=== PATIENT | male | born 1995 | race African-American/Black ===

== ENCOUNTER 2020-05-26 06:34 | Emergency (ER) | payer OTHER ==
[~2020-05-26] VITALS: Ht 180.3 cm; Wt 105.7 kg
[2020-05-26] MEDS ORDERED: UNISOM25 MG PO (06:45)
[2020-05-26] MEDS ORDERED: TRAZODONE HCL50 MG PO (06:45)
[2020-05-26 07:01] LABS: ABSOLUTE NEUTROPHILS 4.6 thou/uL (1.4-8.2); BASOPHILS 0.2 % (0.0-2.0); EOSINOPHILS 0.8 % (0.0-3.0); HEMATOCRIT 43.6 % (42.0-52.0); HEMOGLOBIN 15.3 gm/dL (14.0-18.0); LYMPHOCYTES 9.5 % (24.0-44.0); MCH 32.4 pg (26.0-34.0); MCV 92.5 fL (80.0-100.0); MONOCYTES 10.4 % (1.0-8.0); PLATELET COUNT 207 thou/uL (150-400); POLYS 79.1 % (36.0-66.0); RBC 4.72 mil/uL (4.50-6.00); RDW 14.7 % (10.5-14.5); WBC 5.8 thou/uL (4.0-11.0)
[2020-05-26 07:28] LABS: ANION GAP 12 mmol/L (7-16); BUN 9 mg/dL (7-18); CALCIUM 9.5 mg/dL (8.5-10.1); CHLORIDE 95 mmol/L (98-107); CO2 26 mmol/L (21-32); CREATININE 1.2 mg/dL (0.7-1.3); GLUCOSE 118 mg/dL (74-106); POTASSIUM 3.6 mmol/L (3.5-5.1); SODIUM 133 mmol/L (136-145)
[2020-05-26 07:38] LABS: LIPASE 2130 U/L (73-393); SGOT 120 U/L (15-37); SGPT 152 U/L (16-63); TOTAL BILIRUBIN 1.6 mg/dL (0.2-1.0); TOTAL PROTEIN 8.2 g/dL (6.4-8.2); TROPONIN-I <0.06 ng/mL (<0.06)
[2020-05-26 08:55] VITALS: BP 132/97
--- NOTE | 2020-05-26 13:41 | EKG ---
[address] [address] ELECTROCARDIOGRAM REPORT Name: FLORESFARRAH HUNTER Room #[facility]ITALZhang[facility] [id number] Admission: 05/26/20 Attend Phys: Discharge: 05/26/20 Date of : [birth year] Report #: [id number] [facility] ED Test Date: 2020-05-26 Test Time: 06:43:26 Pat Name: FARRAH FLORES Department: Room: Gender: Legal Internship: : 1995 Requested By: Patrick Mueller Order Number: [id number] MD: Garland Santacruz Measurements Intervals [place] Rate: 86 P: 73 [place]: 136 QRS: 40 QRSD: 96 T: 30 QT: 348 QTc: 417 Interpretive Statements Sinus rhythm No previous ECG available for comparison Electronically Signed On 05-26-2020 13:40:58 [employer] by Garland Santacruz [email or web address] <ELECTRONICALLY SIGNED> By: Garland Santacruz MD, [facility] 05/26/20 [id number] Garland Santacruz MD, FACC /EPI
== END 2020-05-26 08:57 | disposition home or self-care (01) ==
LOC: ER 06:34
PROVIDERS: Emergency Medicine
DX: R07.89 Other chest pain (principal); F17.210 Nicotine dependence, cigarettes, uncomplicated; Z79.899 Other long term (current) drug therapy; Z91.013 Allergy to seafood